=== PATIENT | male | born 1955 | race Caucasian/White ===

== ENCOUNTER 2020-01-28 07:09 | Day surgery (SDC) | payer OTHER ==
[~2020-01-28] VITALS: Ht 182.9 cm; Wt 91.2 kg
--- NOTE | 2020-01-28 09:16 | NUR ---
01/28/20 0916 Hiwot Alva 0905- PT TO PACU IN LL POSITION. EYES OPEN ASKING QUESTIONS ABOUT PROCEDURE. BREATHING EASY AND UNLABORED. ON 3 L O2 VIA NC AND SP02 >95%. DENIES PAIN AND NAUSEA. PT ENCOURAGED TO TAKE DEEP BREATHS AND PASS GAS. 0915- PT PASSING GAS. DENIES PAIN NAUSEA OR DIZZINESS. BREATHING EASY AND UNLABORED. SPO2 >90% ON ROOM AIR. PT CONTINUES TO ASK QUESTIONS ABOUT PROCEDURE
--- NOTE | 2020-01-28 10:22 | OR ---
[facility] [address] [place], [place] [address] Signed DATE OF OPERATION: 01/28/2020 SURGEON: Brandee Koroma MD PREOPERATIVE DIAGNOSES: 1. Personal history of colonic polyps, age 54 (2009). 2. Diverticulosis. POSTOPERATIVE DIAGNOSES: 1. A 7 mm pedunculated polyp at 20 cm (tattoo/snare). 2. A 3 mm polyp at 55 cm. 3. Minimal left and sigmoid diverticulosis. 4. Minimal internal and external hemorrhoids. PROCEDURE: Colonoscopy, snare polypectomy, hot biopsy and injection of tattoo. ESTIMATED BLOOD LOSS: None. INDICATIONS: John is a 64-year-old gentleman, asked to see me for a followup colonoscopy. He has had polyps taken out back in 2009 at the age of 54. He also has left-sided diverticulosis. There is no family history of colon cancer or polyps. He has no lower GI complaints. I gave John a pamphlet on colonoscopy in the office. He understands colonoscopy quite well. He understands there is risk including, but not limited to gas bloating, crampy abdominal pain, bleeding, perforation requiring surgery, and missed diagnosis. He also understands the need for IV conscious sedation. He had expressed and understanding wished to proceed. DESCRIPTION OF OPERATIVE PROCEDURE: John was taken into our endoscopy suite and placed in the left lateral decubitus position. He was given IV sedation with 9 mg of Versed and 100 mcg of fentanyl. A digital rectal exam was performed and this showed some very small external hemorrhoid tissue. The adult colonoscope was then introduced and advanced all around into the cecum under direct visualization of camera without difficulty. His prep was quite good. We could easily see the appendiceal orifice and the ileocecal valve. The scope was slowly withdrawn. We removed a small polyp at 55 cm with a hot biopsy forceps. Again, we saw just small diverticula in the left and sigmoid colon. They were minimal in size, minimal in number and scattered about. Back at 20 cm, he had a 7 mm pedunculated polyp Electronically Signed By: BRANDEE KOROMA MD 01/28/20 1022 PATIENT NAME: JOHN BROWN OPERATIVE REPORT DATE OF : 59 REPORT #: [id number] PHYSICIAN: BRANDEE KOROMA MD PCP: LINDA SOMERS PA-C REPORT IS CONFIDENTIAL AND NOT TO BE RELEASED WITHOUT AUTHORIZATION [facility] [address] [place] [id number] Signed removed with the help of the snare. We then injected a small tattoo just to the side of polypectomy site. The rectum itself was unremarkable. Upon retroflexion of scope, he has very minimal internal hemorrhoid tissue. After this, the gas was suctioned out and the colonoscope removed. John tolerated the procedure quite well. RECOMMENDATIONS: I will see John back in my office in 7 to 14 days to review his results. Currently, he will be on 5-year rotation. Brandee Koroma MD ALB/ELSYL /[id number] cc: MD Linda Sue PA-C Copies: BRANDEE KOROMA MD, CHLOE K PA-C ~ Electronically Signed By: BRANDEE KOROMA MD 01/28/20 1022 PATIENT NAME: JOHN BROWN CYNTHIA OPERATIVE REPORT DATE OF : 59 REPORT #: [id number] PHYSICIAN: BRANDEE KOROMA MD PCP: LINDA SOMERS PA-C REPORT IS CONFIDENTIAL AND NOT TO BE RELEASED WITHOUT AUTHORIZATION
--- NOTE | 2020-01-29 15:20 | PATH ---
[facility] [address] [place], [place] [address] Signed SPECIMEN(S): A COLON POLYP AT 20 CM SPECIMEN(S): B COLON POLYP AT 55 CM SPECIMEN SOURCE: A. COLON POLYP AT 20 CM B. COLON POLYP AT 55 CM CLINICAL HISTORY: History of colon polyps. Postop: Diverticulosis, colon polyps. Colonoscopy. MICROSCOPIC DESCRIPTION: Histologic sections of all submitted blocks are examined by light microscopy. These findings, together with the gross examination, support the pathologic diagnosis. FINAL PATHOLOGIC DIAGNOSIS: A. Colon polyp at 20 cm, biopsy: - Tubular adenoma. B. Colon polyp at 55 cm, biopsy: - Slightly polypoid colonic mucosa with focal epithelial erosion and mixed lamina propria inflammation, suggestive of inflammatory polyp. JVR:[facility]:C2NR GROSS DESCRIPTION: Two specimens are received in two containers, labeled "." A. The specimen, labeled ", 1," and designated on the requisition "colon polyp at 20 cm," is received in formalin and consists of one dark red-brown, polypoid, 0.5 x 0.5 x 0.5 cm tissue piece. The specimen is bisected to reveal ford-white, homogenous tissue. The specimen is entirely submitted in cassette (A1). B. The specimen, labeled ", 2," and designated on the requisition "colon polyp at 55 cm," is received in formalin and consists of multiple ford soft tissue fragments that measure less than 0.1 up to 0.4 cm in greatest dimension. The specimen is inked blue. The specimen is entirely submitted in cassette (B1). AI (under the direct supervision of a pathologist) The Gross Description was prepared using a voice recognition system. The report was reviewed for accuracy; however, sound-alike word errors, addition and/or deletions may occur. If there is any question about this report, please contact Client Services. PATIENT NAME: MICHAEL BROWN PATHOLOGY DATE OF : 59 REPORT #: [id number] PHYSICIAN: [facility] PATHOLOGY PCP: YRIS SOMERS PA-C REPORT IS CONFIDENTIAL AND NOT TO BE RELEASED WITHOUT AUTHORIZATION [facility] [address] [place] [id number] Signed PERFORMING LABORATORY: The technical component was performed by [employer], [address] [place] [id number] (Range Master: Isadora Hi MD; CLIA# [id number]). Professional interpretation was performed by [employer], [address] [address] (Range Master: Carlton Victor M.D.). Diagnostician: Carlton Victor MD Pathologist Electronically Signed 01/29/2020 Copies: ~ PATIENT NAME: MICHAEL BROWN PATHOLOGY DATE OF : 59 REPORT #: [id number] PHYSICIAN: [facility] PATHOLOGY PCP: YRIS SOMERS PA-C REPORT IS CONFIDENTIAL AND NOT TO BE RELEASED WITHOUT AUTHORIZATION
== END 2020-01-28 09:35 | disposition home or self-care (01) ==
LOC: DS 07:09 → OPS 07:09 → DS 08:15 → OPS 08:15
PROVIDERS: Colon & Rectal Surgery
PROC: 3E0H8GC Introduction of Other Therapeutic Substance into Lower GI, Via Natural or Artificial Opening Endoscopic (ICD-10-PCS; 2020-01-28)
PROC: 0DBE8ZZ Excision of Large Intestine, Via Natural or Artificial Opening Endoscopic (ICD-10-PCS; principal; 2020-01-28 08:15)
DX: D12.6 Benign neoplasm of colon, unspecified (principal); K64.8 Other hemorrhoids; K64.4 Residual hemorrhoidal skin tags; K57.30 Diverticulosis of large intestine without perforation or abscess without bleeding; F17.210 Nicotine dependence, cigarettes, uncomplicated; Z86.010 Personal history of colon polyps; Z88.8 Allergy status to other drugs, medicaments and biological substances
CPT/HCPCS: 99153; G0500; J2250; J3010; J7121

== ENCOUNTER 2021-06-04 13:22 | Emergency (ER) | payer OTHER ==
[~2021-06-04] VITALS: Ht 180.3 cm; Wt 86.6 kg
--- OUTSIDE RECORDS SUMMARY | 2021-06-04 13:26 | XMS ---
PreManage Notification: MICHAEL BROWN Security Solvent Station Attendant Events No recent Security Events currently on file [facility] There are no care providers on record at this time. Samir has no Care Guidelines for this patient. [place] VISIT COUNT (12 MO.) 1 CAITLYN Paredes TOTAL 1 NOTE: Visits indicate total known visits. ED/UCC VISIT TRACKING (12 MO.) 06/04/2021 13:24 [facility]N [place] TYPE: Emergency COMPLAINT: - R SWOLLEN ANKLE/LEG, POST SURGICAL INPATIENT VISIT TRACKING (12 MO.) No inpatient visits to display in this time frame [email or web address]
[2021-06-04] MEDS ORDERED: XARELTO20 MG PO (16:56)
[2021-06-04] MEDS ORDERED: XARELTO15 MG PO (16:56)
== END 2021-06-04 17:15 | disposition home or self-care (01) ==
LOC: ED 13:22
DX: I82.411 Acute embolism and thrombosis of right femoral vein (principal); I82.431 Acute embolism and thrombosis of right popliteal vein; I82.451 Acute embolism and thrombosis of right peroneal vein; I82.441 Acute embolism and thrombosis of right tibial vein; F17.200 Nicotine dependence, unspecified, uncomplicated; Z88.8 Allergy status to other drugs, medicaments and biological substances
CPT/HCPCS: 80053; 85025; 93971; 99284-25

== ENCOUNTER 2021-07-31 06:11 | Emergency (ER) | payer OTHER ==
[~2021-07-31] VITALS: Ht 180.3 cm; Wt 83.9 kg
[~2021-07-31 06:11] MED LIST: XARELTO15 MG PO; XARELTO20 MG PO
--- OUTSIDE RECORDS SUMMARY | 2021-07-31 06:14 | XMS ---
PreManage Notification: MICHAEL BROWN Security Environmental Advisor Events No recent Security Events currently on file CRITERIA MET - [facility] CARE PROVIDERS YRIS SOMERS Physician Box Sorter Current PHONE: [phone] Samir has no Care Guidelines for this patient. [place] VISIT [place] (12 MO.) 2 CAITLYN Paredes TOTAL 2 NOTE: Visits indicate total known visits. ED/UCC VISIT TRACKING (12 MO.) 07/31/2021 06:12 [facility] [place] TYPE: Emergency COMPLAINT: - CHEST PAIN 06/04/2021 13:24 [facility] [place] TYPE: Emergency COMPLAINT: - R SWOLLEN ANKLE/LEG, POST SURGICAL DIAGNOSES: - Acute embolism and thrombosis of right femoral vein - Allergy status to other drugs, medicaments and biological substances - Other specified soft tissue disorders - Acute embolism and thrombosis of right popliteal vein - Acute embolism and thrombosis of right tibial vein - Acute embolism and thrombosis of right peroneal vein - Nicotine dependence, unspecified, uncomplicated INPATIENT VISIT TRACKING (12 MO.) No inpatient visits to display in this time frame [email or web address]
[2021-07-31] MEDS ORDERED: ZITHROMAX250 MG PO (09:08)
--- NOTE | 2021-07-31 13:57 | EKG ---
[facility] [address] [facility] [place] [address] Signed Normal sinus rhythm Normal ECG No previous ECGs available Confirmed by LG NARANJO MD ([id number]) on 07/31/2021 1:57:32 PM Electronically Signed By: LG NARANJO MD 07/31/21 1357 PATIENT NAME: MICHAEL BROWN CYNTHIA Electrocardiogram DATE OF : 59 PHYSICIAN: LG NARANJO MD REPORT #: [id number] REPORT IS CONFIDENTIAL AND NOT TO BE RELEASED WITHOUT AUTHORIZATION
== END 2021-07-31 09:18 | disposition home or self-care (01) ==
LOC: ED 06:11
DX: J40 Bronchitis, not specified as acute or chronic (principal); Z86.718 Personal history of other venous thrombosis and embolism; F17.200 Nicotine dependence, unspecified, uncomplicated; Z88.6 Allergy status to analgesic agent; Z79.899 Other long term (current) drug therapy
CPT/HCPCS: 36415; 71045; 71260; 80053; 84484; 85025; 85379; 93005; 93010; 99285-25; J1885; Q9967